=== PATIENT | female | born 1960 | race Caucasian/White ===

== ENCOUNTER 2016-11-11 16:20 | Emergency (ER) | payer BC ==
[2016-11-11 16:34] VITALS: BP 121/67
--- NOTE | 2016-11-11 16:56 | UC ---
Throat Pain/Nasal [place] HPI - HPI Summary HPI Summary: complaint of sore throat that started 3 days ago nasal congestion adn cough denies fever but has had chills close contacts with strep infection taking tylenol without much relief - History of Current Complaint Chief Complaint: UCRespiratory Stated Complaint: ST/COUGH Time Seen by Provider: 11/11/16 16:50 Hx Obtained From: Patient Hx Last Menstrual Period: 2 MONTHS AGO - Allergies/Home Medications Allergies/Adverse Reactions: Allergies Allergy/AdvReac Type Severity Reaction Status Date / Time Doxycycline Allergy See Comment Verified 11/11/16 16:27 Penicillins Allergy See Comment Verified 11/11/16 16:27 Sulfa Drugs Allergy Rash Verified 11/11/16 16:27 Home Medications: Home Medications Levothyroxine TAB* [Synthroid TAB*] 112 mcg PO 0800 11/11/16 [History Confirmed 11/11/16] PMH/Surg Hx/FS Hx/Imm Hx Previously Healthy: Yes Endocrine History Of: Reports: Thyroid Disease - goiter Respiratory History Of: Reports: Asthma - allergic - Surgical History Surgical History: Yes Surgery Procedure, Year, and Place: R carpal tunnel 2009. Goiter removed January 2016. RIGHT eardrum hole repair January 2016 - Family History Known Family History: Negative: Cardiac Disease, Hypertension, Diabetes - Social History Occupation: Employed Full-time Lives: With Family Alcohol Use: None Substance Use Type: None Smoking Status (MU): Never Smoked Tobacco - Immunization History Most Recent Influenza Vaccination: NONE Most Recent Tetanus Shot: UTD Most Recent Pneumonia Vaccination: N/A Review of Systems Constitutional: Negative Skin: Negative Eyes: Negative ENT: Sore Throat, Nasal Discharge Respiratory: Cough Cardiovascular: Negative Gastrointestinal: Negative Genitourinary: Negative Motor: Negative Neurovascular: Negative Musculoskeletal: Negative Neurological: Negative Psychological: Negative All Other Systems Reviewed And Are Negative: Yes Physical Exam Triage Information Reviewed: Yes Appearance: No Pain Distress, Well-Nourished, Ill-Appearing Vital Signs: Initial Vital Signs Temp 99.3 F 11/11/16 16:29 Pulse 78 11/11/16 16:29 Resp 18 11/11/16 16:29 BP 121/67 11/11/16 16:29 Pulse Ox 99 11/11/16 16:29 Vital Signs Reviewed: Yes Eyes: Positive: Conjunctiva Clear ENT: Positive: Pharyngeal erythema, Nasal congestion, Nasal drainage, TMs normal Neck: Positive: No Lymphadenopathy Respiratory: Positive: Lungs clear, Normal breath sounds, No respiratory distress, No accessory muscle use Cardiovascular: Positive: RRR, No Murmur, Pulses Normal Abdomen Description: Positive: Nontender, Soft Bowel Sounds: Positive: Present Musculoskeletal: Positive: No Edema Neurological: Positive: Alert Psychological Exam: Normal Skin Exam: Normal Throat Pain/Nasal Course/Dx - Differential Dx/Diagnosis Differential Diagnosis/HQI/PQRI: Pharyngitis, Tonsillitis, URI Provider Diagnoses: pharyngitis Discharge - Discharge Plan Condition: Stable Disposition: HOME Patient Education Materials: Pharyngitis (ED) Referrals: [facility] [Outside] Additional Instructions: PHARYNGITIS (Sore Throat) What is Pharyngitis? The medical name for a sore throat is Pharyngitis. It is caused by an infection or irritation of your throat or tonsils. The infection can be caused by a virus or by bacteria. Not everyone with Pharyngitis needs antibiotics. Antibiotics will not make viral infections better, and they will not help a sore throat caused by irritation. Symptoms May Include: Sore throat Swelling of the glands in the neck Trouble or pain with swallowing Fever Headache Cough Extreme tiredness Ear pain Treatment Recommendations: Gargle every few hours with a solution of 1/4 teaspoon of salt dissolved in 1/ 2 cup of warm water. Drink plenty of warm beverages, like tea with lemon, (with or without honey) and soup. You may eat and drink cold foods and liquids like frozen yogurt, popsicles, and ice water if that makes your throat feel better. The goal is to keep you well hydrated. Use a "cool-mist" vaporizer or humidifier in the room where you spend most of your time. If you get a sore throat often, consider adding an electronic air filter and humidifier to your furnace system. Don't smoke. Do not eat spicy foods. Take medicine exactly as prescribed. If you do not think it is helping, call your healthcare provider. Do not increase how much or how often you take it without getting their OK first. Non-prescription anti-inflammatory medicine like ibuprofen (Motrin, Advil) or naproxen (Aleve) may help lessen the pain. You should not take these medicines if you have had bleeding in your stomach in the past. Acetaminophen ( Tylenol) is another choice of medicine that may help the pain. If pain medicine that makes you tired or sleepy or contains narcotics is prescribed, you should not drink, drive, or participate in any other activities that you need to be clear-headed for. Please keep all medicines out of the reach of children. Do not get in close contact with anyone you know who has a sore throat. Use throat lozenges (Cepostat, Gifford, etc.) or suck on hard candy for temporary relief of the pain with swallowing. (Do not give to children under age 5.) Call Your Doctor or Return Here IF: Your symptoms do not start to get better within 2 days or you become worse. You have a fever over 101.0 F orally. You cant swallow liquids or saliva. You are drooling. You start to have trouble breathing. You start to have a rash. You start to have a stiff neck. You start to have pain in your chest. You start to have any symptoms that are new or worry you. Your blood pressure is pre-hypertensive reading. Please contact your primary care provider within 1 day -4 weeks for further evaluation.
== END 2016-11-11 17:21 | disposition home or self-care (01) ==
LOC: UCCORT 16:20
DX: J02.9 Acute pharyngitis, unspecified (principal); R05 Cough; Z88.1 Allergy status to other antibiotic agents; Z88.0 Allergy status to penicillin; Z88.2 Allergy status to sulfonamides; E04.9 Nontoxic goiter, unspecified; J45.909 Unspecified asthma, uncomplicated
CPT/HCPCS: 87651; 99211; G0463

== ENCOUNTER 2017-10-13 13:27 | Emergency (ER) | payer BC ==
--- NOTE | 2017-10-13 13:45 | UC ---
Respiratory Complaint HPI - HPI Summary HPI Summary: PT HAS HX MULTIPLE MYELOMA AND RECENTLY COMPLETED RADIATION AND WILL START CHEMO SOON. SHE HAS HAD A COUGH FOR PAST WEEK AND NOW C/O FEVER TO 104 LAST PM WITH SPUTUM. ADMITS TO SOB. FEELS SIMILAR TO PRIOR PNEUMONIA. STATES CURRENT BP IS HER BASELINE. ADMITS ALWAYS WEAK AND FATIGUED FROM ANEMIA BUT IS WORSE SINCE LAST PM. HAD SEPTIC PNEUMONIA 08/06. IN PROCESS OF TRANSFERING HER CANCER CARE TO [facility] WITHIN THE WEEK. NO CP, V/D/DYSURIA. BACK PAIN AGGRAVATED BY THIS COUGHING. - History of Current Complaint Stated Complaint: COUGH Time Seen by Provider: 10/13/17 13:30 Hx Obtained From: Patient, Family/[employer] Up Helper Hx Last Menstrual Period: 2 MONTHS AGO Onset/Duration: Gradual Onset Severity Initially: Mild Severity Currently: Severe Aggravating Factors: Exertion, Recumbent Position Alleviating Factors: Nothing Associated Signs And Symptoms: Positive: Dyspnea, Fever, Chills - Risk Factors Pulmonary Embolism Risk Factors: Malignancy - Allergies/Home Medications Allergies/Adverse Reactions: Allergies Allergy/AdvReac Type Severity Reaction Status Date / Time doxycycline Allergy Unknown yeast Verified 10/13/17 13:41 infection- esphogus, esophegeal errosion Penicillins Allergy Unknown yeast Verified 10/13/17 13:41 infection of esphogus, esophogel errosion Sulfa (Sulfonamide Allergy Unknown Rash Verified 10/13/17 13:41 Antibiotics) PMH/Surg Hx/FS Hx/Imm Hx - Additional Past Medical History Additional PMH: Thyroid disease, Multiple myeloma, Back pain - Surgical History Surgical History: Yes Surgery Procedure, Year, and Place: R carpal tunnel 2009. Goiter removed January 2016. RIGHT eardrum hole repair January 2016 - Family History Known Family History: Negative: Cardiac Disease, Hypertension, Diabetes - Social History Occupation: Disabled Alcohol Use: None Substance Use Type: None Smoking Status (MU): Never Smoked Tobacco - Immunization History Most Recent Influenza Vaccination: NONE Most Recent Tetanus Shot: UTD Most Recent Pneumonia Vaccination: N/A Review of Systems Constitutional: Fever, Chills, Fatigue, Other - weak Skin: Negative Eyes: Negative ENT: Negative Respiratory: Shortness Of Breath, Cough Cardiovascular: Negative Gastrointestinal: Negative Genitourinary: Negative Motor: Negative Neurovascular: Negative Musculoskeletal: Other: - Back pain Neurological: Headache, Weakness Psychological: Negative Is Patient Immunocompromised?: Yes - CA, chemo last month All Other Systems Reviewed And Are Negative: Yes Physical Exam Triage Information Reviewed: Yes Appearance: Ill-Appearing, Thin Vital Signs Reviewed: Yes Eyes: Positive: Conjunctiva Clear ENT: Positive: Pharynx normal, Other - lips and tongue are dry. Negative: Nasal congestion, Nasal drainage Neck: Positive: Supple, Nontender, No Lymphadenopathy Respiratory: Positive: No respiratory distress, No accessory muscle use, Decreased breath sounds, Crackles - both bases Cardiovascular: Positive: No Murmur, Tachycardia - [id number] Abdomen Description: Positive: Nontender, No Organomegaly, Soft Bowel Sounds: Positive: Present Musculoskeletal: Positive: Other: - ROM Back limited by pain Neurological: Positive: Alert Psychological: Positive: Age Appropriate Behavior Skin Exam: Normal UC Diagnostic Evaluation - Laboratory Diagnostic Studies Comment: Rapid flu=negative - Radiology Xray Interpretation: Positive (See Comments) - RLL pneumonia, see report Radiology Interpretation Completed By: Radiologist Re-Evaluation - Re-Evaluation Second Eval Re-Evaluation Time: 14:32 - much improved aeration, pt notes easier to breathe. Coarse crackles BLL's. Repeat BP improved. IV NS established and EMS at bedside. Respiratory Course/Dx - Course Course Of Treatment: CXR=pnemonia, Rapid flu=neg. Multiple myeloma hx, Immune compromise and possible early sepsis. Pt agrees to transfer [facility] where she is to have cancer care within the next week. transfer center called, report given. Pt refused transfer as time of initial assessment, prior to my initiation of tx and workup. She became agreeable after additional d/w myself and her daughter. Case d/w Dr Peralta after my initial assessment. - Differential Dx/Diagnosis Provider Diagnoses: RLL pneumonia, multiple myeloma, immune compromise, possible early sepsis Discharge - Sign-Out/Discharge Documenting (check all that apply): Discharge - Discharge Plan Condition: Stable Disposition: [facility] Referrals: No Primary Care Phys,NOPCP [Primary Care Provider] - - Billing Disposition and Condition Condition: STABLE Disposition: EMTALA
[2017-10-13] MEDS ORDERED: Albuterol 2.5 MG/3 ML NEB.SOL* (0.083%) INH ONE (14:01)
--- NOTE | 2017-10-13 14:17 | RAD ---
INDICATION: Pneumonia. Fever. Cough. COMPARISON: None TECHNIQUE: PA and lateral dual-energy views were obtained. FINDINGS: Bones/Soft Tissues: There are no acute bony findings. Cardiomediastinal: The cardiomediastinal silhouette is normal. Lungs: Is right lower lobe infiltrate with partial consolidation.. Pleura: There are no pleural effusions. Other: None IMPRESSION: RIGHT LOWER LOBE INFILTRATE.
[2017-10-13] MEDS ORDERED: Acetaminophen TAB* 325 MG PO ONE (14:31)
[2017-10-13 14:36] VITALS: BP 110/59
[2017-10-13] MEDS ORDERED: NS 0.9% 1000 ML* 1,000 ML IV SCH (14:45)
== END 2017-10-13 14:40 | disposition short-term general hospital (02) ==
LOC: UCCORT 13:27
DX: J18.9 Pneumonia, unspecified organism (principal); C90.00 Multiple myeloma not having achieved remission; D84.9 Immunodeficiency, unspecified; Z88.3 Allergy status to other anti-infective agents; Z88.0 Allergy status to penicillin; Z88.2 Allergy status to sulfonamides
CPT/HCPCS: 71046; 87502; 99214; A9270-GY; G0463

== ENCOUNTER 2018-12-19 17:26 | Emergency (ER) | payer BC ==
--- NOTE | 2018-12-19 17:47 | UC ---
Ear Complaint HPI - HPI Summary HPI Summary: Patient is a 58 year old female, who present today to the urgent care with right ear pain and fullness for past 1 week. She feels it's plugged in and reports muffled hearing. She had a tympanoplasty in this year 5 years ago. Denies any problems since. Denies any ear discharge Denies any fever, chills, cough chest pain or shortness of breath . No diaphoresis. Denies any abdominal pain , nausea or vomiting , diarrhea or constipation. She does take Claritin-D every day - History of Current Complaint Stated Complaint: RIGHT EAR CONCERN Time Seen by Provider: 12/19/18 17:38 Hx Obtained From: Patient Hx Last Menstrual Period: 2 MONTHS AGO - Allergies/Home Medications Allergies/Adverse Reactions: Allergies Allergy/AdvReac Type Severity Reaction Status Date / Time doxycycline Allergy Unknown yeast Verified 12/19/18 17:47 infection- esphogus, esophegeal errosion Penicillins Allergy Unknown yeast Verified 12/19/18 17:47 infection of esphogus, esophogel errosion Sulfa (Sulfonamide Allergy Unknown Rash Verified 12/19/18 17:47 Antibiotics) Home Medications: Home Medications Esomeprazole Magnesium [Nexium 24Hr] 20 mg PO DAILY 12/19/18 [History Confirmed 12/19/18] PMH/Surg Hx/FS Hx/Imm Hx - Additional Past Medical History Additional PMH: Past Medical History : Multiple myeloma in remission now, asthma, goiter, pneumonia, gastric ulcer Family History : Noncontributory Social History : No alcohol, former smoker, no drug use. She works at [employer] . Previously Healthy: Yes - Surgical History Surgical History: Yes Surgery Procedure, Year, and Place: R carpal tunnel 2009. Goiter removed January 2016. RIGHT eardrum hole repair January 2016 - Family History Known Family History: Negative: Cardiac Disease, Hypertension, Diabetes - Social History Alcohol Use: None Substance Use Type: None Smoking Status (MU): Never Smoked Tobacco Type: Cigarettes When Did the Patient Quit Smoking/Using Tobacco: 15 YRS AGO - Immunization History Most Recent Influenza Vaccination: NONE Most Recent Tetanus Shot: UTD Most Recent Pneumonia Vaccination: N/A Review of Systems All Other Systems Reviewed And Are Negative: Yes Constitutional: Positive: Negative Skin: Positive: Negative Eyes: Positive: Negative ENT: Positive: Ear Ache - Right ear pain with decreased hearing Respiratory: Positive: Negative Cardiovascular: Positive: Negative Gastrointestinal: Positive: Negative Genitourinary: Positive: Negative Motor: Positive: Negative Neurovascular: Positive: Negative Musculoskeletal: Positive: Negative Neurological: Positive: Negative Psychological: Positive: Negative Is Patient Immunocompromised?: No Physical Exam - Summary Physical Exam Summary: Physical Exam: Const: Appears well. No signs of apparent distress present. Alert and oriented x 3. Musculo: Walks with a normal gait. Head/Face: Atraumatic, normocephalic on inspection. Eyes: EOMI and PERRLA in both eyes. Conjunctivae clear. No discharge noted ENT: Decreased hearing on the right side, tympanic membrane normal appearing on the left side with scar tissue. Right tympanic membranes is intact without much erythema but some fluid behind the tympanic membrane. No tenderness to palpation on maxillary and frontal sinus. No pharyngeal erythema or exudates . Uvula is midline. There is mild right cervical or submandibular lymphadenopathy noted. Some tenderness on the right side Respiratory: Respirations are unlabored. Lungs clear to auscultation bilaterally, no wheezing , rhonchi or rales noted . CVS: Regular rate and Rhythm, S1S2 normal , no murmurs identified. Extremities: Peripheral circulation is grossly normal. Pulses 2+ Abdomen : Soft non tender , nondistended , Bowel sounds present . No guarding , rebound tenderness or rigidity noted. Skin: No lesions or rash located on the upper extremities or on the lower extremities. Neuro: Cranial nerves II to XII intact, motor and sensory intact. DTR Intact bilaterally. Mood is normal. Affect is normal. Triage Information Reviewed: Yes Vital Signs Reviewed: Yes Ear Complaint Course/Dx - Course Course Of Treatment: During the visit today, we discussed the findings and further plan. I will prescribe the medication to the pharmacy . Continue Claritin-D Patient expressed understanding . - Differential Dx/Diagnosis Provider Diagnosis: Acute otitis media with effusion of right ear Discharge - Sign-Out/Discharge Documenting (check all that apply): Patient Departure All imaging exams completed and their final reports reviewed: No Studies - Discharge Plan Condition: Stable Disposition: HOME Prescriptions: Azithromycin TAB* [Zithromax TAB (Z-AMIRAH) 250 mg #6 tabs] 250 mg PO DAILY 4 Days #4 tab Patient Education Materials: Ear Infection (ED) Referrals: Sandeep Olvera MD [Primary Care Provider] - 1 Week Additional Instructions: Please start taking the medication as prescribed to the pharmacy . Follow up with your primary care doctor in 1 week Return to Urgent care / ER if symptoms get worse. - Billing Disposition and Condition Condition: STABLE Disposition: Home
[2018-12-19 17:50] VITALS: BP 106/84
[2018-12-19] MEDS ORDERED: Azithromycin TAB* 250 MG PO ONE (18:16)
== END 2018-12-19 18:37 | disposition home or self-care (01) ==
LOC: UCCORT 17:26
DX: H65.191 Other acute nonsuppurative otitis media, right ear (principal); C90.01 Multiple myeloma in remission; J45.909 Unspecified asthma, uncomplicated; E04.9 Nontoxic goiter, unspecified; Z88.0 Allergy status to penicillin; Z88.1 Allergy status to other antibiotic agents; Z88.2 Allergy status to sulfonamides; Z87.01 Personal history of pneumonia (recurrent); Z87.19 Personal history of other diseases of the digestive system; Z87.891 Personal history of nicotine dependence
CPT/HCPCS: 99212; A9270-GY; G0463

== ENCOUNTER 2019-02-19 16:34 | Emergency (ER) | payer BC ==
[2019-02-19 17:01] VITALS: BP 135/79
--- NOTE | 2019-02-19 17:17 | UC ---
Ear Complaint HPI - HPI Summary HPI Summary: C/O right ear pain x 3 days. Also C/O sore throat, cough, and sinus pain. No SOB. - History of Current Complaint Chief Complaint: UCEar Stated Complaint: RIGHT EAR/THROAT CONCERN Hx Obtained From: Patient Hx Last Menstrual Period: 2 MONTHS AGO ?: No Onset/Duration: Gradual Onset, Lasting Days - 3, Still Present Severity Initially: Moderate Severity Currently: Moderate Pain Intensity: 5 Aggravating Factors: Nothing Alleviating Factors: Nothing Associated Signs/Symptoms: Positive: URI Symptoms Related History: Seasonal Allergies - Allergies/Home Medications Allergies/Adverse Reactions: Allergies Allergy/AdvReac Type Severity Reaction Status Date / Time doxycycline Allergy Unknown yeast Verified 02/19/19 16:53 infection- esphogus, esophegeal errosion Penicillins Allergy Unknown yeast Verified 02/19/19 16:53 infection of esphogus, esophogel errosion Sulfa (Sulfonamide Allergy Unknown Rash Verified 02/19/19 16:53 Antibiotics) PMH/Surg Hx/FS Hx/Imm Hx Endocrine History: Hypothyroidism Respiratory History: Pneumonia GI/ History: Ulcer Other Cancer History: Multiple Myeloma - Surgical History Surgical History: Yes Surgery Procedure, Year, and Place: R carpal tunnel 2009. Goiter removed January 2016. RIGHT eardrum hole repair January 2016 - Family History Known Family History: Positive: Hypertension, Diabetes Negative: Cardiac Disease - Social History Occupation: Employed Full-time Lives: With Family Alcohol Use: None Substance Use Type: None Smoking Status (MU): Never Smoked Tobacco Type: Cigarettes When Did the Patient Quit Smoking/Using Tobacco: 15 YRS AGO - Immunization History Most Recent Influenza Vaccination: NONE Most Recent Tetanus Shot: UTD Most Recent Pneumonia Vaccination: N/A Review of Systems All Other Systems Reviewed And Are Negative: Yes Constitutional: Positive: Fatigue ENT: Positive: Sore Throat, Ear Ache, Sinus Pain/Tenderness Respiratory: Positive: Cough Is Patient Immunocompromised?: No Physical Exam Triage Information Reviewed: Yes Appearance: No Pain Distress, Well-Nourished, Ill-Appearing Vital Signs: Initial Vital Signs Temp 98.5 F 02/19/19 16:54 Pulse 87 02/19/19 16:54 Resp 18 02/19/19 16:54 BP 135/79 02/19/19 16:54 Pulse Ox 99 02/19/19 16:54 Vital Signs Reviewed: Yes Eyes: Positive: Conjunctiva Clear ENT: Positive: Pharynx normal, Nasal congestion - with allergic changes, TMs normal - with scarring bilaterally. Right TM retracted Neck exam: Normal Respiratory Exam: Normal Cardiovascular Exam: Normal Musculoskeletal Exam: Normal Neurological Exam: Normal Psychological Exam: Normal Skin Exam: Normal Ear Complaint Course/Dx - Differential Dx/Diagnosis Differential Diagnosis/HQI/PQRI: Otitis Externa, Otitis Media, Perforated TM, URI Provider Diagnosis: Upper respiratory disease, Sinusitis, acute, Allergic rhinitis, Right ear pain Discharge - Sign-Out/Discharge Documenting (check all that apply): Patient Departure All imaging exams completed and their final reports reviewed: No Studies - Discharge Plan Condition: Stable Disposition: HOME Prescriptions: Cefdinir [Cefdinir 300 MG CAP] 300 mg PO BID #20 capsule Patient Education Materials: Upper Respiratory Infection (ED), Sinusitis (ED), Cefdinir (By mouth) Referrals: Sandeep Olvera MD [Primary Care Provider] - Additional Instructions: [employer] NetworkMED SINUS RINSE: CHECK OUT AT [employer] Saline nasal wash helps with mucous, allergies and congestion. It can be used up to twice a day or only as needed. Use lukewarm tap water. It does not have to be sterilized or distilled water. Do 1/3 on each side and snort out of both nostrils. Repeat the process with 1/6 of the bottle on each side with snorting in between to finish the solution in the bottle Do the sinus rinse daily until you can pop your ears easily. Warm packs over the ear can help with pain. - Billing Disposition and Condition Condition: STABLE Disposition: Home
== END 2019-02-19 17:30 | disposition home or self-care (01) ==
LOC: UCCORT 16:34
DX: J06.9 Acute upper respiratory infection, unspecified (principal); J01.90 Acute sinusitis, unspecified; J30.9 Allergic rhinitis, unspecified; H92.01 Otalgia, right ear; Z88.2 Allergy status to sulfonamides; Z88.0 Allergy status to penicillin; Z88.1 Allergy status to other antibiotic agents; C90.00 Multiple myeloma not having achieved remission; Z87.891 Personal history of nicotine dependence
CPT/HCPCS: 99212; G0463